=== PATIENT | female | born 1995 | race African-American/Black ===

== ENCOUNTER 2017-06-15 19:55 | Emergency (ER) | payer SELFPAY ==
--- NOTE | 2017-06-15 20:42 | ER ---
Nurse's Notes [facility] Name: David Childs Age: 22 yrs Sex: Female : 1995 Arrival Date: 06/15/2017 Time: 19:56 Bed Waiting Private MD: Luis Doyle E Diagnosis: ED Course: 06/15 19:56 Patient arrived in ED. es 19:56 Luis Doyle MD is Private Physician. es 20:21 Patient's name was called from ER lobby. No response. aj 20:32 Patient's name was called from ER lobby. No response. aj 20:41 Dagoberto Gallagher MD is Attending Physician. aj 20:41 Patient's name was called from ER lobby. No response. aj Administered Medications: No medications were administered Outcome: 20:41 Eloped from waiting room, before seeing physician Time discovered patient gone: June at 20:41 20:42 Patient left the ED. aj Signatures: Eva Casas, RN RN Diane Estrada
== END 2017-06-15 20:42 | disposition left against medical advice (07) ==
LOC: ER 19:55
DX: Z53.21 Procedure and treatment not carried out due to patient leaving prior to being seen by health care provider (principal)

== ENCOUNTER 2017-06-16 10:05 | Emergency (ER) | payer SELFPAY ==
[2017-06-16 12:21] LABS: Urine Blood 3+ (NEG); Urine Glucose NEGATIVE (NEG); Urine Protein NEGATIVE (NEG); Urine Specific Gravity >1.030 (1.005-1.030); Urine pH 6.5 (5.0-7.0)
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
[2017-06-16 12:56] LABS: Urine Bacteria >50 /HPF (<20); Urine Culture Reflex Order REFLEXED; Urine RBC TNTC /HPF (NONE SEEN)
[2017-06-16] MEDS ORDERED: NA CHLORIDE 0.9% 1,000 ML ONE (12:57)
[2017-06-16 13:12] LABS: Absolute Lymphocytes (CBC) 2.2 K/uL (0.7-4.9); Absolute Monocytes 0.5 K/uL (0.1-1.3); Absolute Neutrophil 3.7 K/uL (1.8-8.0); Basophils % 0.8 % (0-1.3); Eosinophils % 0.4 % (0-4.4); Hematocrit 37.5 % (36.0-45.0); Lymphocytes % 33.9 % (15.3-44.8); MCH 27.8 pg (27.0-35.0); MCV 86.8 fL (80-100); MPV 8.7 fL (7.6-11.3); Monocytes % 7.8 % (3.3-12.3); RBC Red Blood Cell Count 4.32 M/uL (3.86-4.86)
[2017-06-16 13:18] LABS: Glomerular Filtration Rate > 60 mL/min (>60); Potassium 3.7 mEq/L (3.6-5.0)
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
[2017-06-16] MEDS ORDERED: CEFTRIAXONE 1000 MG/VIAL ONE (14:04)
[2017-06-16] MEDS ORDERED: CIPROFLOXACIN HCL 500 MG TAB ONE (14:04)
[2017-06-16 14:15] VITALS: TEMP 97.7
[2017-06-16 14:16] VITALS: BP 122/76; O2SAT 98
== END 2017-06-16 14:07 | disposition home or self-care (01) ==
LOC: ER 10:05
DX: S60.211A Contusion of right wrist, initial encounter (principal); S00.90XA Unspecified superficial injury of unspecified part of head, initial encounter; N30.90 Cystitis, unspecified without hematuria; Y08.89XA Assault by other specified means, initial encounter; Y93.9 Activity, unspecified; Y92.89 Other specified places as the place of occurrence of the external cause; F17.210 Nicotine dependence, cigarettes, uncomplicated; G40.909 Epilepsy, unspecified, not intractable, without status epilepticus
CPT/HCPCS: 36415; 70450; 71250; 72125; 80048; 81003; 81015; 81025; 85025; 86850; 86900; 86901; 87077; 87086; 87088; 87186; 96372; 99284; J7030

== ENCOUNTER 2022-01-22 14:16 | Emergency (ER) | payer OTHER, SELFPAY ==
--- NOTE | 2022-01-22 15:12 | RAD REPORT ---
EXAM DESCRIPTION: RAD - Shoulder Left 2 View - 01/22/2022 3:02 pm CLINICAL HISTORY: PAIN COMPARISON: No comparisons TECHNIQUE: Internal and external rotation views of the left shoulder were obtained. FINDINGS: There is no fracture or dislocation. AC joint is normal in appearance. No acute or suspici ous findings. IMPRESSION: Negative two-view left shoulder examination for acute findings.
[2022-01-22] MEDS ORDERED: KETOROLAC 30 MG/ML INJ ONE (16:00)
[2022-01-22] MEDS ORDERED: METHYLPREDNISOLONE 125 MG INJ ONE (16:00)
[2022-01-22] MEDS ORDERED: methocarbamoL 500 MG TAB ONE (16:00)
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
--- NOTE | 2022-01-22 16:19 | EDPHYS ---
Physician Documentation [facility] Name: David Childs Age: 27 yrs Sex: Female : 1995 Arrival Date: 01/22/2022 Time: 14:17 Bed 10 Private MD: ED Physician Joe Ramírez HPI: 01/22 17:47 This 27 yrs old Black Female presents to ER via EMS with complaints of Shoulder Pain. kdr 17:47 The patient or guardian complains of decreased range of motion, pain, that is acute. kdr 17:47 Patient woke up this morning with left shoulder pain. It is posterior and kdr suprascapular. She has had this previously but not as bad. She denies any injury or trauma.. Onset: The symptoms/episode began/occurred this morning. Severity of symptoms: At their worst the symptoms were moderate incapacitating in the emergency department the symptoms are unchanged. The patient has experienced similar episodes in the past, several times, but today's symptoms are worse, more painful. The patient has not recently seen a physician. Historical: - Allergies: 14:21 No Known Allergies; iw - Home Meds: 14:21 None [Active]; iw - PMHx: 14:21 Seizures; iw - PSHx: 14:28 section; ll1 - Immunization history:: Client reports receiving the 2nd dose of the Covid vaccine. - Social history:: Smoking status: Reported history of juuling and/or vaping. ROS: 17:47 Constitutional: Negative for fever, chills, and weight loss, Eyes: Negative for injury, kdr pain, redness, and discharge, Neck: Negative for injury, pain, and swelling, Cardiovascular: Negative for chest pain, palpitations, and edema, Respiratory: Negative for shortness of breath, cough, wheezing, and pleuritic chest pain, Abdomen/GI: Negative for abdominal pain, nausea, vomiting, diarrhea, and constipation, Back: Negative for injury and pain, : Negative for injury, bleeding, discharge, and swelling, Skin: Negative for injury, rash, and discoloration, Neuro: Negative for headache, weakness, numbness, tingling, and seizure activity. Psych: Negative for depression, anxiety, suicide ideation, homicidal ideation, and hallucinations, Allergy/Immunology: Negative for hives, rash, and allergies, Endocrine: Negative for neck swelling, polydipsia, polyuria, polyphagia, and marked weight changes, Hematologic/Lymphatic: Negative for swollen nodes, abnormal bleeding, and unusual bruising. 17:47 MS/extremity: Positive for decreased range of motion, pain, tenderness, of the left scapular area. Exam: 17:47 Constitutional: This is a well developed, well nourished patient who is awake, alert, kdr and in no acute distress. Head/Face: Normocephalic, atraumatic. Neck: Trachea midline, no thyromegaly or masses palpated, and no cervical lymphadenopathy. Supple, full range of motion without nuchal rigidity, or vertebral point tenderness. No Meningismus. Chest/axilla: Normal chest wall appearance and motion. Nontender with no deformity. No lesions are appreciated. Cardiovascular: Regular rate and rhythm with a normal S1 and S2. No gallops, murmurs, or rubs. Normal PMI, no JVD. No pulse deficits. Respiratory: Lungs have equal breath sounds bilaterally, clear to auscultation and percussion. No rales, rhonchi or wheezes noted. No increased work of breathing, no retractions or nasal flaring. Abdomen/GI: Soft, non-tender, with normal bowel sounds. No distension or tympany. No guarding or rebound. No evidence of tenderness throughout. Back: No spinal tenderness. No costovertebral tenderness. Full range of motion. 17:47 Musculoskeletal/extremity: Extremities: grossly normal except: noted in the left scapular area: decreased ROM, pain. Vital Signs: 14:27 BP 131 / 99; Pulse 100; Resp 16; Temp 98.5; Pulse Ox 98% on R/A; Weight 114.76 kg; ll1 Height 6 ft. 0 in. (182.88 cm); Pain 10/10; 14:27 Body Mass Index 34.31 (114.76 kg, 182.88 cm) ll1 MDM: 16:18 Patient medically screened. kdr 17:47 Data reviewed: vital signs, nurses notes. Counseling: I had a detailed discussion with kdr the patient and/or guardian regarding: the historical points, exam findings, and any diagnostic results supporting the discharge/admit diagnosis, the need for outpatient follow up. 01/22 14:43 Order name: Shoulder Left (2 View) XRAY kdr Administered Medications: 16:04 Drug: SOLU-Medrol (methylPrednisoLONE) 125 mg Route: IVP; Site: left hand; iw 16:05 Drug: Ketorolac 15 mg Route: IVP; Site: left hand; iw 16:05 Not Given (Physician Discretion): Robaxin (methocarbamol) 1 grams IVPB once over 1 hrs; iw (mix in NS 100 mL) 16:05 Drug: Robaxin (methocarbamol) 750 mg Route: PO; iw Disposition Summary: 01/22/22 16:18 Discharge Ordered Location: Home kdr Condition: Stable kdr Diagnosis - Pain in left shoulder kdr - Unspecified symptoms and signs involving the musculoskeletal system kdr Followup: kdr - With: Private Physician - When: 2 - 3 days - Reason: If symptoms return, Further diagnostic work-up, Recheck today's complaints, Continuance of care, Re-evaluation by your physician Discharge Instructions: - Discharge Summary Sheet kdr - Musculoskeletal Pain kdr - Shoulder Range of Motion Exercises kdr - Shoulder Pain, [id number] kdr Forms: - Medication Reconciliation Form kdr - Thank You Letter kdr Prescriptions: - Ibuprofen 600 mg Oral Tablet - take 1 tablet by ORAL route every 6 hours As needed take with food; 15 tablet; kdr Refills: 0, Product Selection Permitted - Cyclobenzaprine 10 mg Oral Tablet - take 1 tablet by ORAL route every 8 hours As needed; 15 tablet; Refills: 0, kdr Product Selection Permitted - Medrol (Alex) 4 mg Oral Tablets, Dose Pack - take 1 tablet by ORAL route as directed - follow package instructions; 1 kdr packet; Refills: 0, Product Selection Permitted Signatures: Dispatcher [employer] Joe Nicole MD MD kdr Lani Gagnon, RN RN iw Roxanne Person RN RN ll1
[2022-01-22 17:13] VITALS: BP 131/99; TEMP 98.5; O2SAT 98
== END 2022-01-22 16:41 | disposition home or self-care (01) ==
LOC: ER 14:16
DX: R29.91 Unspecified symptoms and signs involving the musculoskeletal system (principal)
CPT/HCPCS: 73030; 96375; 96374; 99284; J2930; J2800

== ENCOUNTER 2024-07-01 03:02 | Emergency (ER) | payer OTHER ==
[2024-07-01] MEDS ORDERED: CEFTRIAXONE 2000 MG/VIAL ONE (04:17)
[2024-07-01] MEDS ORDERED: KETOROLAC 30 MG/ML INJ ONE (04:17)
[2024-07-01] MEDS ORDERED: ONDANSETRON 4 MG/2 ML VIAL ONE (04:17)
[2024-07-01] MEDS ORDERED: FENTANYL CITR 100 MCG/2 ML ONE (04:18)
[2024-07-01] MEDS ORDERED: CLINDAMYCIN 900MG/D5W 900 MG/50 ML IVPB IV ONE (04:18)
[2024-07-01 05:57] LABS: Albumin 3.3 g/dL (3.4-5.0); Albumin/Globulin Ratio 0.8 (1.1-1.8); Anion Gap 9.9 mEq/L (5.0-15.0); Bilirubin Total 0.2 mg/dL (0.2-1.0); Globulin 4.2 g/dL (2.3-3.5); Potassium 3.9 mEq/L (3.5-5.1); Protein, Total 7.5 g/dL (6.4-8.2)
--- NOTE | 2024-07-01 05:58 | RAD REPORT ---
EXAMINATION: Facial Bones W/ Mpr CLINICAL INDICATION: Female, 29 years old. FACIAL PAIN TECHNIQUE: Axial images were obtained through the facial bones and orbits without intravenous contras t. Sagittal and coronal reconstructions were created from the data. One or more of the following dose reduction techniques were used: Automated exposure control, adjustment of the mA and/or kV accor ding to patient size, and/or iterative reconstruction. Unless otherwise specified, incidental findings do not require dedicated imaging follow-up. [id number]. COMPARISON: No prior exam. FINDINGS: SOFT TISSUE: Tongue ring present. BONES: Dental caries and periapical lucency associated with the left mandibular first molar. No absce ss identified. Question mild left facial cellulitis. ORBITS: The globes are intact. No intraorbital hemorrhage or mass. SINUSES: The paranasal sinuses and tympanomastoid cavities are predominantly clear. BRAIN: No acute abnormalities in the visualized intracranial structures. IMPRESSION: Dental dom and periapical lucency associated with the left first mandibular molar and possible willi y facial cellulitis. No abscess.
[2024-07-01 06:00] LABS: Specific Gravity > 1.030 (1.005-1.030)
[2024-07-01 06:05] LABS: Specific Gravity > 1.030 (1.005-1.030); Sqamous Epithelial <5 /HPF (None Seen); Urine Bacteria None Seen /HPF (<20); Urine Bilirubin NEGATIVE (Negative); Urine Blood Negative (Negative); Urine Clarity Clear (Clear); Urine Color Yellow (Yellow); Urine Culture Reflex Order NOT NEEDED; Urine Glucose NEGATIVE (Negative); Urine Ketones NEGATIVE (Negative); Urine Microscopic Reflex YN ORDER UMIC; Urine Mucus Slight /HPF (None Seen); Urine Nitrite NEGATIVE (Negative); Urine Protein TRACE (Negative); Urine RBC <5 /HPF (None Seen); Urine Urobilinogen Normal (Normal); Urine WBC <5 /HPF (<5); Urine pH 6.5 (5.0-7.0)
--- NOTE | 2024-07-01 06:07 | ER ---
Nurse's Notes [facility] Name: David Childs Age: 29 yrs Sex: Female : 1995 Arrival Date: 07/01/2024 Time: 03:02 Bed 9 Private MD: Diagnosis: Dental caries, unspecified-left lower 1st molar abscess;Dental root caries;Cellulitis of other sites-LEFT CHEEK Presentation: 07/01 03:37 Chief complaint: Patient states: LEFT LOWER JAW PAIN THAT BEGAN AT MID-NIGHT....UNSURE br2 IF POSSIBLE TOOTH ISSUE. Coronavirus screen: Client denies travel out of the [place] in the last 14 days. Ebola Screen: Patient denies exposure to infectious person. Initial Sepsis Screen: Does the patient meet any 2 criteria? No. Patient's initial sepsis screen is negative. Does the patient have a suspected source of infection? No. Patient's initial sepsis screen is negative. Risk Assessment: Do you want to hurt yourself or someone else? Patient reports no desire to harm self or others. Onset of symptoms was July 01, 2024 at 00:00. 03:37 Method Of Arrival: Ambulatory br2 03:37 Acuity: FEROZ 4 br2 Triage Assessment: 03:41 General: Appears uncomfortable, Behavior is crying. Pain: Complains of pain in left br2 submandibular area Pain currently is 10 out of 10 on a pain scale. TENDER COORDINATOR: 03:41 LMP 06/15/2024, unknown br2 Historical: - Allergies: 03:41 No Known Allergies; br2 - PMHx: 03:41 Seizures; br2 - Immunization history:: Adult Immunizations not up to date. - Infectious Disease History:: Denies. - Social history:: Smoking status: Reported history of juuling and/or vaping. Patient/guardian denies using alcohol, street drugs. - Family history:: not pertinent. Screenin:30 [facility] ED Fall Risk Assessment (Adult) History of falling in the last 3 months, jj7 including since admission No falls in past 3 months (0 pts) Confusion or Disorientation No (0 pts) Intoxicated or Sedated No (0 pts) Impaired Gait Yes (1 pt) Mobility Assist Device Used No (0 pt) Altered Elimination No (0 pt) Score/Fall Risk Level 0 - 2 = Low Risk Oriented to surroundings, Maintained a safe environment, Educated pt \T\ family on fall prevention, incl call for assistance when getting out of bed, Assessed \T\ reinforced patient's understanding of fall precautions. Abuse screen: Denies threats or abuse. Nutritional screening: No deficits noted. Tuberculosis screening: No symptoms or risk factors identified. Assessment: 04:30 Reassessment: ASSUMED CARE OF PT. PT IN BED HOLDING BABY. VS STABLE. CALL LAINEZ IN jj7 REACH. General: Appears in no apparent distress. uncomfortable, Behavior is calm, cooperative, appropriate for age, crying. Pain: Complains of pain in left jaw, left cheek and left mandible Pain currently is 10 out of 10 on a pain scale. EENT: Reports LOWER TEETH PAIN THAT RADIATES TO LEFT JAW. 05:30 Reassessment: PT SLEEPING. NO DISTRESS NOTE. VS STABLE. jj7 05:30 Reassessment: Patient states feeling better. Patient states symptoms have improved. jj7 Vital Signs: 03:37 BP 163 / 106; Pulse 84; Resp 18; Temp 97.9; Pulse Ox 99% ; Weight 108.86 kg; Height 5 br2 ft. 11 in. ; Pain 10/10; 05:30 BP 143 / 79; Pulse 80; Resp 17; Pulse Ox 99% ; Pain 0/10; jj7 06:40 BP 102 / 67; Pulse 84; Resp 16; Temp 98.1; Pulse Ox 98% ; Pain 0/10; jj7 03:37 Body Mass Index 33.47 (108.86 kg, 180.34 cm) br2 03:37 Pain Scale: Adult br2 05:30 Pain Scale: Adult jj7 06:40 Pain Scale: Adult jj7 ED Course: 03:09 Patient arrived in ED. gm2 03:16 David Valenzuela MD is Attending Physician. [place] 03:41 Triage completed. br2 03:41 Arm band placed on. br2 03:51 Lucy Aiken RN is Primary Nurse. jj7 04:30 Patient has correct armband on for positive identification. Bed in low position. Call jj7 light in reach. Side rails up X2. Provided Education on: USE OF CALL LAINEZ. Warm blanket given. 04:42 Inserted saline lock: 20 gauge in right antecubital area, using aseptic technique. kmf Blood collected. Flushed with 10 mL NS. 05:02 CT Facial Bones W/O Con In Process Unspecified. EDMS 05:15 PREGU Sent. jj7 05:15 Urinalysis w/ reflexes Sent. jj7 05:15 Comprehensive Metabolic Panel Sent. jj7 05:15 CBC with Diff Sent. jj7 06:06 Edi Kyle DDS is Referral Physician. [facility] 06:52 No provider procedures requiring assistance completed. IV discontinued, intact, jj7 bleeding controlled, No redness/swelling at site. Pressure dressing applied. Administered Medications: 04:51 Drug: Ondansetron IVP 4 mg IVP once; over 2 minutes Route: IVP; Site: right antecubital;jj7 06:23 Follow up: Response: Marked relief of symptoms jj7 04:52 Drug: Rocephin IV 2 grams IV at per protocol once; Given slow IV push per pharmarcy jj7 instructions Route: IV; Rate: per protocol; Site: right antecubital; 05:00 Follow up: IV Status: Completed infusion jj7 04:52 Drug: Clindamycin IVPB 900 mg IVPB once over 30 mins; (mix in 50 mL) Route: IVPB; jj7 Infused Over: 30 mins; Site: right antecubital; 05:30 Follow up: IV Status: Completed infusion jj7 04:52 Drug: Ketorolac IVP 30 mg IVP once Route: IVP; Site: right antecubital; jj7 06:24 Follow up: Response: Marked relief of symptoms; Pain is decreased jj7 04:52 Drug: fentaNYL (PF) IVP 50 mcg IVP once Route: IVP; Site: right antecubital; jj7 06:23 Follow up: Response: Marked relief of symptoms; Pain is decreased jj7 Medication: 04:30 VIS not applicable for this client. jj7 Outcome: 06:06 Discharge ordered by . [place] 06:52 Discharged to home ambulatory, jj7 06:52 Condition: improved 06:52 Discharge instructions given to patient, Instructed on discharge instructions, follow up and referral plans. medication usage, Demonstrated understanding of instructions, follow-up care, medications, Prescriptions given X 3, 06:53 Patient left the ED. jj7 Signatures: Dispatcher MedHoDavid Barron MD MD cha Johnson, Juwairiyah RN RN jj7 Tammi Woody 2 Rosibel Hyde Bree Zavala RN RN br2
--- NOTE | 2024-07-01 06:07 | EDPHYS ---
Physician Documentation [facility] Name: David Childs Age: 29 yrs Sex: Female : 1995 Arrival Date: 07/01/2024 Time: 03:02 Bed 9 Private MD: ED Physician David Valenzuela HPI: 07/01 04:04 This 29 yrs old Black Female presents to ER via Ambulatory with complaints of Jaw Pain, pey[place] Facial Swelling. 04:04 The patient presents with broken tooth/teeth, pain, redness, swelling. The problem is pey[place] located in the left submandibular area. Onset: The symptoms/episode began/occurred 3 day(s) ago. Duration: The symptoms are continuous, and are steadily getting worse. Modifying factors: The symptoms are alleviated by nothing, the symptoms are aggravated by chewing. Associated signs and symptoms: The patient has no apparent associated signs or symptoms. Severity of symptoms: At their worst the symptoms were moderate, in the emergency department the symptoms are actually worse, markedly. The patient has experienced similar episodes in the past, several times. SAMPLER RADIOACTIVE WASTE: 03:41 LMP 06/15/2024, unknown br2 Historical: - Allergies: 03:41 No Known Allergies; br2 - PMHx: 03:41 Seizures; br2 - Immunization history:: Adult Immunizations not up to date. - Infectious Disease History:: Denies. - Social history:: Smoking status: Reported history of juuling and/or vaping. Patient/guardian denies using alcohol, street drugs. - Family history:: not pertinent. ROS: 04:04 Constitutional: Negative for fever, chills, and weight loss, Eyes: Negative for injury, pey[place] pain, redness, and discharge, Neck: Negative for injury, pain, and swelling, Cardiovascular: Negative for chest pain, palpitations, and edema, Respiratory: Negative for shortness of breath, cough, wheezing, and pleuritic chest pain, Abdomen/GI: Negative for abdominal pain, nausea, vomiting, diarrhea, and constipation, Back: Negative for injury and pain, : Negative for injury, bleeding, discharge, and swelling, MS/Extremity: Negative for injury and deformity, Skin: Negative for injury, rash, and discoloration, Neuro: Negative for headache, weakness, numbness, tingling, and seizure, Psych: Negative for depression, anxiety, suicide ideation, homicidal ideation, and hallucinations, Allergy/Immunology: Negative for hives, rash, and allergies, Endocrine: Negative for neck swelling, polydipsia, polyuria, polyphagia, and marked weight changes, 04:04 ENT: Positive for dental pain, Exam: 04:04 Constitutional: This is a well developed, well nourished patient who is awake, alert, pey[place] and in no acute distress. Eyes: Pupils equal round and reactive to light, extra-ocular motions intact. Lids and lashes normal. Conjunctiva and sclera are non-icteric and not injected. Cornea within normal limits. Periorbital areas with no swelling, redness, or edema. Neck: Trachea midline, no thyromegaly or masses palpated, and no cervical lymphadenopathy. Supple, full range of motion without nuchal rigidity, or vertebral point tenderness. No Meningismus. Chest/axilla: Normal chest wall appearance and motion. Nontender with no deformity. No lesions are appreciated. Cardiovascular: Regular rate and rhythm with a normal S1 and S2. No gallops, murmurs, or rubs. Normal PMI, no JVD. No pulse deficits. Respiratory: Lungs have equal breath sounds bilaterally, clear to auscultation and percussion. No rales, rhonchi or wheezes noted. No increased work of breathing, no retractions or nasal flaring. Abdomen/GI: Soft, non-tender, with normal bowel sounds. No distension or tympany. No guarding or rebound. No evidence of tenderness throughout. Back: No spinal tenderness. No costovertebral tenderness. Full range of motion. Skin: Warm, dry with normal turgor. Normal color with no rashes, no lesions, and no evidence of cellulitis. MS/ Extremity: Pulses equal, no cyanosis. Neurovascular intact. Full, normal range of motion., bilateral aka Neuro: Awake and alert, GCS 15, oriented to person, place, time, and situation. Cranial nerves II-XII grossly intact. Motor strength 5/5 in all extremities. Sensory grossly intact. Cerebellar exam normal. Normal gait. 04:04 Head/face: Noted is swelling, that is moderate, of the left jaw, Vital Signs: 03:37 BP 163 / 106; Pulse 84; Resp 18; Temp 97.9; Pulse Ox 99% ; Weight 108.86 kg; Height 5 br2 ft. 11 in. ; Pain 10/10; 05:30 BP 143 / 79; Pulse 80; Resp 17; Pulse Ox 99% ; Pain 0/10; jj7 06:40 BP 102 / 67; Pulse 84; Resp 16; Temp 98.1; Pulse Ox 98% ; Pain 0/10; jj7 03:37 Body Mass Index 33.47 (108.86 kg, 180.34 cm) br2 03:37 Pain Scale: Adult br2 05:30 Pain Scale: Adult jj7 06:40 Pain Scale: Adult jj7 MDM: 03:16 Medical Screening Exam initiated [facility] 03:37 Medical Screening Exam initiated [place] 04:07 Differential diagnosis: dental caries, gingivitis, dental abscess. Data reviewed: vital pey[place] signs, nurses notes, lab test result(s), radiologic studies, CT scan. Consideration of Admission/Observation Escalation of care including admission/observation considered. I considered the following discharge prescriptions or medication management in the emergency department Medications were administered in the Emergency Department. See MAR. Independent interpretation of the following test(s) in the Emergency Department CT Scan: My interpretation is ct max /face. Test considered but Not performed: X-ray: no x ray. Historians other than the Patient: pt well informed. Care significantly affected by the following chronic conditions: seizures. 07/01 03:18 Order name: Comprehensive Metabolic Panel; Complete Time: 06:07 [facility] 07/01 03:18 Order name: Urinalysis w/ reflexes; Complete Time: 06:07 [facility] 07/01 03:18 Order name: PREGU; Complete Time: 06:07 [facility] 07/01 03:18 Order name: CT Facial Bones W/O Con; Complete Time: 06:07 [facility] Administered Medications: 04:51 Drug: Ondansetron IVP 4 mg IVP once; over 2 minutes Route: IVP; Site: right antecubital;jj7 06:23 Follow up: Response: Marked relief of symptoms j7 04:52 Drug: Rocephin IV 2 grams IV at per protocol once; Given slow IV push per pharmarcy jj7 instructions Route: IV; Rate: per protocol; Site: right antecubital; 05:00 Follow up: IV Status: Completed infusion j7 04:52 Drug: Clindamycin IVPB 900 mg IVPB once over 30 mins; (mix in 50 mL) Route: IVPB; jj7 Infused Over: 30 mins; Site: right antecubital; 05:30 Follow up: IV Status: Completed infusion jj7 04:52 Drug: Ketorolac IVP 30 mg IVP once Route: IVP; Site: right antecubital; jj7 06:24 Follow up: Response: Marked relief of symptoms; Pain is decreased jj7 04:52 Drug: fentaNYL (PF) IVP 50 mcg IVP once Route: IVP; Site: right antecubital; jj7 06:23 Follow up: Response: Marked relief of symptoms; Pain is decreased jj7 Disposition Summary: 07/01/24 06:06 Discharge Ordered Notes: Location: Home [place] Problem: new pey[place] Symptoms: have improved [place] Condition: Stable [place] Diagnosis - Dental caries, unspecified - left lower 1st molar abscess pey[place] - Dental root caries pey[place] - Cellulitis of other sites - LEFT CHEEK pey[place] Followup: [place] - With: Private Physician - When: 2 - 3 days - Reason: Recheck today's complaints, Continuance of care, Re-evaluation by your physician Followup: [place] - With: Edi Kyle DDS - When: 2 - 3 days - Reason: Recheck today's complaints, Re-evaluation by your physician Discharge Instructions: - Discharge Summary Sheet pey[place] - Dental Abscess pey[place] - Dental Caries, Adult pey[place] - Dental Pain pey[place] - Dental Pain, [id number] [facility] - Diet and Dental Disease [facility] Forms: - Medication Reconciliation Form [facility] - Antibiotic Education [place] - Prescription Opioid Use [place] - Patient Portal Instructions [facility] - Leadership Thank You Letter [facility] Prescriptions: - Clindamycin HCl 300 mg Oral capsule - take 1 capsule ORAL route every 6 hours for 7 days; 28 capsule; Refills: 0, [facility] Product Selection Permitted - Ibuprofen 600 mg Oral Tablet - take 1 tablet ORAL route every 6 hours As needed take with food; 30 tablet; [facility] Refills: 0, Product Selection Permitted - Tylenol-Codeine #3 300mg-30mg Oral tablet - take 2 tablets ORAL route every 6 hours As needed; 20 tablet; Refills: 0, [facility] Product Selection Permitted Signatures: Dispatcher [employer] David Rodrigues MD MD cha Johnson, Juwairiyah, RN RN jj7 Bree Zavala RN RN br2 Corrections: (The following items were deleted from the chart) 03:18 03:18 CBC+H.LAB.BRZ ordered. EDMS EDMS 03:18 03:18 COMPREHENSIVE METABOLIC PANEL+C.LAB.BRZ ordered. EDMS EDMS 03:18 03:18 Urinalysis+U.LAB.BRZ ordered. EDMS EDMS 03:18 03:18 Test, Urine+UC.LAB.BRZ ordered. EDMS EDMS 03:19 03:18 Facial Bones W/ MPR+CT.RAD.BRZ ordered. EDMS EDMS
[2024-07-01 07:40] VITALS: BP 102/67; TEMP 98.1; O2SAT 98
== END 2024-07-01 06:53 | disposition home or self-care (01) ==
LOC: ER 03:02
DX: K04.7 Periapical abscess without sinus (principal); K02.7 Dental root caries; L03.211 Cellulitis of face
CPT/HCPCS: 81001; 36415; 81025; 80053; 70486; 76377; J3010; J2405; J0696; 96365; 96375; 99284